=== PATIENT | female | born 1990 | race Caucasian/White ===

== ENCOUNTER 2021-07-14 21:28 | Inpatient (IN) | payer OTHER ==
[~2021-07-14] VITALS: Ht 160 cm; Wt 76.7 kg
[2021-07-14] MEDS ORDERED: NALBUPHINE HCL 10 MG/ML AMP IVP PRN (23:45)
[2021-07-14] MEDS ORDERED: LR 1,000 ML IV ONE (23:45)
[2021-07-14] MEDS ORDERED: OXYTOCIN/0.9 % SODIUM CHLORIDE 1,000 ML IV SCH (23:45)
[2021-07-14] MEDS ORDERED: AMPICILLIN SODIUM 2 GM in NS 100 ML IV ONE (23:45)
[2021-07-14] MEDS ORDERED: TERBUTALINE SULFATE 1 MG/ML VIAL SUBCUT ONE (23:45)
[2021-07-14] MEDS ORDERED: NALBUPHINE HCL 10 MG/ML AMP IM PRN (23:45)
[2021-07-14] MEDS ORDERED: LR 1,000 ML IV SCH (23:45)
[2021-07-14] MEDS ORDERED: LR 500 ML IV ONE (23:45)
[2021-07-15 00:41] LABS: BASOPHILS # (AUTO) 0.1 K/uL (0.0-0.2); BASOPHILS % (AUTO) 0.5 % (0.0-2.0); EOSINOPHILS # (AUTO) 0.1 K/uL (0.0-0.4); EOSINOPHILS % (AUTO) 0.5 % (0.0-4.0); HEMOGLOBIN 8.1 g/dL (12.0-16.0); LYMPHOCYTES # (AUTO) 2.3 K/uL (1.0-5.5); LYMPHOCYTES % (AUTO) 21.6 % (20.5-51.5); MEAN CORPUSCULAR HEMOGLOBIN 20 pg (27-31); MEAN CORPUSCULAR HGB CONC 31 % (32-36); MEAN CORPUSCULAR VOLUME 63 fL (79.0-98.0); MONOCYTES # (AUTO) 0.6 K/uL (0.0-1.0); MONOCYTES % (AUTO) 5.9 % (1.7-9.3); NEUTROPHILS # (AUTO) 7.7 K/uL (1.8-7.7); NEUTROPHILS % (AUTO) 71.5 % (40.0-70.0); PLATELET COUNT (AUTO) 232 K/uL (130-430); RED BLOOD CELL COUNT(AUTO) 4.13 MIL/uL (4.2-6.2); RED CELL DISTRIBUTION WIDTH 18.4 % (9.0-15.0); WHITE BLOOD COUNT (AUTO) 10.7 K/uL (4.8-10.8)
[2021-07-15] MEDS ORDERED: AMPICILLIN SODIUM 2 GM VIAL ONE (01:02)
[2021-07-15 03:31] VITALS: BP_SYST 139
[2021-07-15] MEDS ORDERED: AMPICILLIN SODIUM 1 GM VIAL ONE ×2 (05:02→10:18)
[2021-07-15] MEDS: AMPICILLIN SODIUM 1 GM in NS 50 ML IV SCH ×2 (05:07→10:25)
[2021-07-15] MEDS ORDERED: fentaNYL CITRATE/PF 100 MCG/2 ML AMP ONE (05:28)
[2021-07-15] MEDS ORDERED: ROPIVACAINE HCL/PF 0.2% 200 ML ONE (05:28)
[2021-07-15] MEDS ORDERED: LR 500 ML IV ONE (06:00)
[2021-07-15] MEDS ORDERED: FENT2mCg/mL-ROPIVA0.2%/NS EPID 200 ML EP SCH (06:00)
[2021-07-15] MEDS ORDERED: ONDANSETRON HCL 4 MG/2 ML VIAL IVP PRN (10:15)
[2021-07-15] MEDS ORDERED: BUPIVACAINE /PF 0.25% 30 ML VIAL INJ ONE (10:17)
[2021-07-15] MEDS ORDERED: LIDOCAINE PF 1% 30ML(POUR BTL) INJ ONE (10:53)
[2021-07-15] MEDS ORDERED: LIGHT MINERAL OIL 10 ML VIAL MC ONE (10:53)
[2021-07-15] MEDS ORDERED: NALOXONE HCL 0.4 MG/ML AMP (NARCAN) ONE (10:54)
[2021-07-15] MEDS ORDERED: HYDROcodone/ACETAMIN 5-325 MG TAB (NORCO/ VICODIN) PO PRN (11:15)
[2021-07-15] MEDS ORDERED: MEASLES,MUMPS&RUBELLA VACC/PF 12500 UNIT/0.5 ML VIAL SUBQ PRN (11:15)
[2021-07-15] MEDS ORDERED: LANOLIN 7 GM OINT. TP PRN (11:15)
[2021-07-15] MEDS ORDERED: OXYCODONE/ACETAMINOPHEN 5-325 TABLET PO PRN ×2 (11:15)
[2021-07-15] MEDS ORDERED: OXYTOCIN/0.9 % SODIUM CHLORIDE 1,000 ML IV SCH (11:15)
[2021-07-15] MEDS ORDERED: DIPH-TET-PERTUS Vaccine 0.5 ML VIAL (ADACEL) I.M. PRN (11:15)
[2021-07-15] MEDS ORDERED: WITCH HAZEL LEAF 1 MED.PAD MED.PAD TP PRN (11:15)
[2021-07-15] MEDS ORDERED: ANUSOL 1 EA SUPP.RECT (PREPARATION H) RC PRN (11:15)
[2021-07-15] MEDS ORDERED: DERMOPLAST SPRAY TP PRN (11:15)
[2021-07-15] MEDS ORDERED: HYDROCORTISONE 0.5% CREAM 28.4 GM CREAM.GM. TP PRN (11:15)
[2021-07-15] MEDS ORDERED: OXYTOCIN/0.9 % SODIUM CHLORIDE 1,000 ML IV ONE (11:15)
[2021-07-15] MEDS ORDERED: RHO(D) IMMUNE GLOBULIN/MALTOSE 1500 UNITS/1.3 ML (WINHRO) IM PRN (11:15)
[2021-07-15] MEDS ORDERED: NALOXONE HCL 0.4 MG/ML AMP (NARCAN) IVP PRN (11:15)
[2021-07-15] MEDS ORDERED: METHYLERGONOVINE MALEATE 0.2 MG TABLET PO PRN (11:15)
[2021-07-15] MEDS: IBUPROFEN 600 MG TABLET PO SCH ×2 (12:00→18:04)
[2021-07-15] MEDS ORDERED: AMPICILLIN SODIUM 1 GM in NS 50 ML IV SCH (12:00)
[2021-07-15] MEDS ORDERED: SENNOSIDES/DOCUSATE SODIUM 1 TAB TABLET(SENOKOT-S) PO SCH (21:00)
[2021-07-15] MEDS ORDERED: TEMAZEPAM 15 MG CAPSULE PO PRN (21:00)
[2021-07-16] MEDS: IBUPROFEN 600 MG TABLET PO SCH ×3 (00:04→13:27)
[2021-07-16 07:57] LABS: BASOPHILS % (AUTO) 0.4 % (0.0-2.0); EOSINOPHILS # (AUTO) 0.1 K/uL (0.0-0.4); HEMATOCRIT 22.9 % (36-48); LYMPHOCYTES # (AUTO) 2.6 K/uL (1.0-5.5); LYMPHOCYTES % (AUTO) 21.6 % (20.5-51.5); MEAN CORPUSCULAR HEMOGLOBIN 19 pg (27-31); MEAN CORPUSCULAR HGB CONC 30 % (32-36); MEAN CORPUSCULAR VOLUME 63 fL (79.0-98.0); MONOCYTES # (AUTO) 0.7 K/uL (0.0-1.0); MONOCYTES % (AUTO) 5.9 % (1.7-9.3); NEUTROPHILS # (AUTO) 8.7 K/uL (1.8-7.7); NEUTROPHILS % (AUTO) 71.1 % (40.0-70.0); PLATELET COUNT (AUTO) 180 K/uL (130-430); RED BLOOD CELL COUNT(AUTO) 3.63 MIL/uL (4.2-6.2); RED CELL DISTRIBUTION WIDTH 18.1 % (9.0-15.0); WHITE BLOOD COUNT (AUTO) 12.2 K/uL (4.8-10.8)
[2021-07-16] MEDS ORDERED: DOCUSATE SODIUM 100 MG CAPSULE PO SCH (09:00)
[2021-07-16 09:26] LABS: HEMOGLOBIN 6.9 g/dL (12.0-16.0)
[2021-07-16] MEDS ORDERED: FERROUS SULFATE 325 MG TABLET.DR PO ONE (10:00)
[2021-07-16] MEDS ORDERED: FERROUS SULFATE 325 MG TABLET.DR PO SCH (21:00)
== END 2021-07-16 14:30 | disposition home or self-care (01) | DRG 807 ==
LOC: SPU 21:28
PROVIDERS: ADMIT Specialist; ATTEND Specialist
PROC: 10E0XZZ Delivery of Products of Conception, External Approach (ICD-10-PCS; principal; 2021-07-15)
PROC: 3E0R3BZ Introduction of Anesthetic Agent into Spinal Canal, Percutaneous Approach (ICD-10-PCS; 2021-07-15)
PROC: 00HU33Z Insertion of Infusion Device into Spinal Canal, Percutaneous Approach (ICD-10-PCS; 2021-07-15)
DX: O69.81X0 Labor and delivery complicated by cord around neck, without compression, not applicable or unspecified (principal); Z37.0 Single live birth; Z3A.38 38 weeks gestation of pregnancy; Z20.822 Contact with and (suspected) exposure to COVID-19
CPT/HCPCS: 36415; 81002; 85025; 86592; 86886; 86900; 86901; 94760; J0290; J2001; J2310; J2590; J3010; J3490

== ENCOUNTER 2021-07-24 15:46 | Emergency (ER) | payer OTHER ==
[~2021-07-24] VITALS: Ht 160 cm; Wt 76.7 kg
[2021-07-24 16:37] VITALS: BP_SYST 140
--- NOTE | 2021-07-24 16:37 | NUR ---
PT TRIAGED AND PLACED IN ER WAITING ROOM FOR AVAILABLE BED TO BECOME AVAILABLE, CN AND MADE AWARE
--- NOTE | 2021-07-24 16:40 | NUR ---
PT CAME IN FROM HOME REPORTS RIGHT BREAST PAIN STARTING YESTERDAY WITH PINEDA CURRENTLY BREASTFEED FEVER 103.4 ON ARRIVAL. STILL ABLE TO EXPRESS BREASTMILK. PT IS AMBULATORY, [id number], VSS
--- NOTE | 2021-07-24 16:50 | NUR ---
ER DR. JAQUEZ EXAMINING PT IN [facility]
--- NOTE | 2021-07-24 17:05 | NUR ---
# 20 gauge angiocath placed to LAC. Use of asceptic technique. Opsite placed over site. Blood return noted. Blood for lab drawn from site. Flushed with 10 cc of normal saline. No evidence of infiltration noted. Patient tolerated well.
[2021-07-24] MEDS: NACL 0.9% 1,500 ML IV ONE (17:19)
[2021-07-24] MEDS: cefTRIAXone 1 GM IVPB PREMIX 50 ML IV ONE (17:20)
[2021-07-24 17:23] LABS: BASOPHILS # (AUTO) 0.1 K/uL (0.0-0.2); BASOPHILS % (AUTO) 0.7 % (0.0-2.0); EOSINOPHILS % (AUTO) 0.2 % (0.0-4.0); HEMOGLOBIN 9.8 g/dL (12.0-16.0); LYMPHOCYTES # (AUTO) 0.9 K/uL (1.0-5.5); LYMPHOCYTES % (AUTO) 6.5 % (20.5-51.5); MEAN CORPUSCULAR HEMOGLOBIN 19 pg (27-31); MEAN CORPUSCULAR HGB CONC 31 % (32-36); MEAN CORPUSCULAR VOLUME 62 fL (79.0-98.0); MONOCYTES # (AUTO) 0.7 K/uL (0.0-1.0); MONOCYTES % (AUTO) 5.4 % (1.7-9.3); NEUTROPHILS # (AUTO) 11.9 K/uL (1.8-7.7); NEUTROPHILS % (AUTO) 87.2 % (40.0-70.0); PLATELET COUNT (AUTO) 343 K/uL (130-430); RED BLOOD CELL COUNT(AUTO) 5.15 MIL/uL (4.2-6.2); RED CELL DISTRIBUTION WIDTH 19.1 % (9.0-15.0); WHITE BLOOD COUNT (AUTO) 13.6 K/uL (4.8-10.8)
[2021-07-24 17:32] LABS: CALCIUM 8.3 mg/dL (8.4-11.0); CREATININE 0.94 mg/dL (0.55-1.30); POTASSIUM 3.4 mmol/L (3.5-5.1)
[2021-07-24 17:37] LABS: ALBUMIN 3.2 g/dL (3.4-4.8); TOTAL BILIRUBIN 0.9 mg/dL (0.0-1.0)
--- NOTE | 2021-07-24 18:13 | NUR ---
assessed Patient at bedside. Temp 101. Will notify md for orders.
[2021-07-24] MEDS: ACETAMINOPHEN 500 MG TABLET PO ONE (18:20)
[2021-07-24] MEDS ORDERED: CEPH-548 PO (19:55)
[2021-07-24] MEDS ORDERED: ACET-2634 PO (19:55)
[2021-07-24 20:00] VITALS: BP_SYST 128
--- NOTE | 2021-07-24 20:00 | NUR ---
Patient given written and verbal discharge instructions and verbalizes understanding. ER MD discussed with patient the results and treatment provided. Patient in stable condition. ID arm band removed. Rx of TYLENOL AND KEFLEX given. Patient educated on pain management and to follow up with PMD. Pain Scale 0/10 Opportunity for questions provided and answered. Medication side effect fact sheet provided.
== END 2021-07-24 20:00 | disposition home or self-care (01) ==
LOC: SED 15:46
DX: N61.0 Mastitis without abscess (principal); Z79.899 Other long term (current) drug therapy
CPT/HCPCS: 36415; 80053; 83605; 85025; 87040; 96365; 99284; J0696